=== PATIENT | female | born 1935 | race Caucasian/White ===

== ENCOUNTER 2019-10-17 14:29 | Emergency (ER) | payer MEDICARE ==
[~2019-10-17] VITALS: Ht 157.5 cm; Wt 54.5 kg
[2019-10-17] MEDS ORDERED: LEVO25TA9 PO (15:52)
[2019-10-17] MEDS ORDERED: ADV100 IH (15:52)
[2019-10-17] MEDS ORDERED: LIOT5TAB11 PO (15:52)
[2019-10-17] MEDS ORDERED: DESL5TAB38 PO (15:52)
[2019-10-17] MEDS ORDERED: SERT20OR6 PO (15:52)
[2019-10-17] MEDS ORDERED: MONT4GRA2 PO (15:52)
[2019-10-17] MEDS ORDERED: OLOP2.5D5 (15:52)
[2019-10-17] MEDS ORDERED: RIVA1PAT3 TD (15:52)
[2019-10-17] MEDS ORDERED: FLUT16H NASAL (15:52)
[2019-10-17] MEDS ORDERED: MEMA10SO PO (15:52)
[2019-10-17] MEDS ORDERED: AZEL137S8 NASAL (15:52)
[2019-10-17] MEDS ORDERED: LIDOCAINE 1% 10 ML VIAL INJ ONE (17:30)
[2019-10-17 18:52] VITALS: BP 160/80
== END 2019-10-17 18:58 | disposition home or self-care (01) ==
LOC: EMS 14:37
DX: S52.032A Displaced fracture of olecranon process with intraarticular extension of left ulna, initial encounter for closed fracture (principal); F03.90 Unspecified dementia, unspecified severity, without behavioral disturbance, psychotic disturbance, mood disturbance, and anxiety; W19.XXXA Unspecified fall, initial encounter; Y93.89 Activity, other specified; Y92.89 Other specified places as the place of occurrence of the external cause; Y99.8 Other external cause status
CPT/HCPCS: 12002; 70450; 73080; 96372; 99285; J0690; J3490